=== PATIENT | male | born 1965 | race African-American/Black ===

== ENCOUNTER 2018-08-02 21:45 | Inpatient (IN) | payer MEDICAID ==
[~2018-08-02] VITALS: Ht 172.7 cm; Wt 79.8 kg
[~2018-08-02 21:45] MED LIST: CILOXAN 0.3% O1 DROP RIGHT EYE; NAPHCON-A EYE D15 ML OP; NKM
--- NOTE | 2018-08-02 22:03 | NUR ---
ED Nurse Note: received pt from triage, pt came to ED c/o sob and chest pain started yesterday and progressively worsen, pt states he has been sick for two days and started having sx. pt states chest pain r/t sob. pt AA&ox4, gcs=15, skin warm dry, noted audible wheezing, LS=wheezing in/exp to auscultation, -n/v/d, ambulatory. NSR on cardiac sonographer, noted high blood pressure. ERMD at the bedside, RT contacted, spouse member at the bedside, will cont monitor.
[2018-08-02 22:06] VITALS: BP 170/96
--- NOTE | 2018-08-02 22:07 | Emergency Room Report ---
History of Present Illness General Chief Complaint: Chest Pain Source: Patient Present Illness HPI Patient presents with wheezing and dyspnea. This been going on for 2 days. Denies any fevers. He does say that his significant other was ill before he got ill. Denies sore throat or productive cough. He was ill this way in May. He avoided going to the hospital. This is the worst he's ever been. He does not use an inhaler at home. He's never been on steroids or intubated. In triage he rated pain 10/10 however he states this is more dyspnea and shortness of breath and tightness than pain per se. The patient denies cigarettes but smokes cannabis. No palpitations, nausea, vomiting, diarrhea, dysuria, abdominal pain, depression , visual changes, headache. Allergies: Coded Allergies: NO KNOWN DRUG ALLERGIES (Verified Allergy, Unknown, 08/28/15) Patient History Past Medical History: see triage record Social History: Reports: drug use - THC; Denies: smoking Social History Narrative Reviewed Nursing Documentation: PMH: Agreed; PSxH: Agreed Nursing Documentation-PMH Past Medical History: No Stated History Hx Hypertension: No Hx Diabetes: No Review of Systems All Other Systems: negative except mentioned in HPI Physical Exam Vital Signs Date Time Temp Pulse Resp B/P (MAP) Pulse Ox O2 Delivery O2 Flow Rate FiO2 08/02/18 21:58 98.2 97 27 169/97 94 Room Air Sp02 EP Interpretation: reviewed, abnormal - Interpreted as slightly low by me General Appearance: well appearing, no apparent distress, GCS 15 Head: normocephalic Eyes: bilateral eye normal inspection, bilateral eye PERRL ENT: normal pharynx, moist mucus membranes Neck: supple Respiratory: no respiratory distress - However minimally labored breathing with prolonged expiratory phase, no retraction, wheezing, expiration, inspiration Cardiovascular #1: regular rate, rhythm Cardiovascular #2: 2+ radial (R) Gastrointestinal: normal inspection, normal bowel sounds, non tender, no mass, non-distended Musculoskeletal: back normal, gait/station normal, normal range of motion Neurologic: alert, oriented x3, grossly normal Psychiatric: mood/affect normal - Not wanting to be in the hospital Skin: normal inspection, warm/dry Medical Decision Making Diagnostic Impression: Primary Impression: Status asthmaticus Qualified Codes: J45.42 - Moderate persistent asthma with status asthmaticus Additional Impressions: Leukocytosis Qualified Codes: D72.828 - Other elevated white blood cell count Eosinophilia ER Course Patient presents with bronchospasm. He's fairly tight at the moment. Differential includes asthma, bronchitis, acute myocardial infarction, pneumonia amongst others. Evaluation with EKG, chest x-ray and labs. He'll be treated with Solu Medrol, breathing treatments. As this is his initial presentation with bronchospasm he needs to be observed carefully. Patient placed on traffic monitor specialist. EKG with sinus rhythm with left atrial enlargement. Chest x-ray unremarkable. White count is 17,000 with eosinophils. Swab negative for influenza. Patient with improvement after breathing treatments. However with ambulation he still has significant bronchospasm. Consideration of possible admission as there is also leukocytosis. 2:40 still wheezing though NAD. Repeat treatment. Patient admitted to the hospital medical floor for status asthmaticus and leukocytosis. Laboratory Tests Test 08/02/18 22:11 08/02/18 23:00 White Blood Count 17.8 K/UL (4.8-10.8) H Red Blood Count 5.53 M/UL (4.70-6.10) Hemoglobin 16.3 G/DL (14.2-18.0) Hematocrit 48.8 % (42.0-52.0) Mean Corpuscular Volume 88 FL (80-99) Mean Corpuscular Hemoglobin 29.4 PG (27.0-31.0) Mean Corpuscular Hemoglobin Concent 33.4 G/DL (32.0-36.0) Red Cell Distribution Width 13.7 % (11.6-14.8) Platelet Count 207 K/UL (150-450) Mean Platelet Volume 7.0 FL (6.5-10.1) Neutrophils (%) (Auto) 66.9 % (45.0-75.0) Lymphocytes (%) (Auto) 21.7 % (20.0-45.0) Monocytes (%) (Auto) 7.0 % (1.0-10.0) Eosinophils (%) (Auto) 3.5 % (0.0-3.0) H Basophils (%) (Auto) 1.0 % (0.0-2.0) Sodium Level 142 MMOL/L (136-145) Potassium Level 3.8 MMOL/L (3.5-5.1) Chloride Level 106 MMOL/L (98-107) Carbon Dioxide Level 24 MMOL/L (21-32) Anion Gap 12 mmol/L (5-15) Blood Urea Nitrogen 14 mg/dL (7-18) Creatinine 1.1 MG/DL (0.55-1.30) Estimate Glomerular Filtration Rate > 60 mL/min (>60) Glucose Level 93 MG/DL (74-106) Calcium Level 9.3 MG/DL (8.5-10.1) Magnesium Level 2.0 MG/DL (1.8-2.4) Total Bilirubin 0.3 MG/DL (0.2-1.0) Aspartate Amino Transferase (AST) 30 U/L (15-37) Alanine Aminotransferase (ALT) 49 U/L (12-78) Alkaline Phosphatase 97 U/L (46-116) Total Creatine Kinase 210 U/L (26-308) Troponin I 0.000 ng/mL (0.000-0.056) Pro-B-Type Natriuretic Peptide 38 pg/mL (0-125) Total Protein 8.4 G/DL (6.4-8.2) H Albumin 4.5 G/DL (3.4-5.0) Globulin 3.9 g/dL Albumin/Globulin Ratio 1.2 (1.0-2.7) Urine Color Pale yellow Urine Appearance Clear Urine pH 5 (4.5-8.0) Urine Specific [place] 1.020 (1.005-1.035) Urine Protein Negative (NEGATIVE) Urine Glucose (UA) Negative (NEGATIVE) Urine Ketones 1+ (NEGATIVE) H Urine Blood Negative (NEGATIVE) Urine Nitrite Negative (NEGATIVE) Urine Bilirubin Negative (NEGATIVE) Urine Urobilinogen Normal MG/DL (0.0-1.0) Urine Leukocyte Esterase Negative (NEGATIVE) Microbiology Date/Time Source Procedure Growth Status 08/02/18 22:11 Nasal Nares Influenza Types A,B Antigen (VISHAL) - Final Complete EKG Diagnostic Results Rate: normal Rhythm: NSR ST Segments: no acute changes - Left atrial enlargement Rhythm Strip Diag. Results EP Interpretation: yes Rhythm: NSR, no PVC's, no ectopy Chest X-Ray Diagnostic Results Chest X-Ray Diagnostic Results : Chest X-Ray Ordered: Yes # of Views/Limited/Complete: 1 View Indication: Shortness of Breath EP Interpretation: Yes Interpretation: no consolidation, no effusion, no pneumothorax Impression: Other Electronically Signed by: Electronically signed by Mateo Arzola MD Last Vital Signs Date Time Temp Pulse Resp B/P (MAP) Pulse Ox O2 Delivery O2 Flow Rate FiO2 08/03/18 03:36 97.8 107 18 158/81 100 Room Air 08/03/18 03:28 21 Status: improved Disposition: ADMITTED INPATIENT Condition: Serious Mateo Arzola MD Aug 02, 2018 22:07
[2018-08-02] MEDS ORDERED: Solu-MEDROL 125mg Inj IVP ONE (22:15)
[2018-08-02] MEDS ORDERED: Albuterol ud Inhalation HHN ONE (22:15)
[2018-08-02] MEDS ORDERED: Ipratropium 0.02% Inh Soln 2.5ml UD HHN ONE (22:15)
[2018-08-02 22:33] LABS: EOSINOPHILS % (AUTO) 3.5 % (0.0-3.0); HEMATOCRIT 48.8 % (42.0-52.0); HEMOGLOBIN 16.3 G/DL (14.2-18.0); LYMPHOCYTES % (AUTO) 21.7 % (20.0-45.0); MEAN CORPUSCULAR VOLUME 88 FL (80-99); NEUTROPHILS % (AUTO) 66.9 % (45.0-75.0); PLATELET COUNT 207 K/UL (150-450); RED BLOOD COUNT 5.53 M/UL (4.70-6.10); RED CELL DISTRIBUTION WIDTH 13.7 % (11.6-14.8); WHITE BLOOD COUNT 17.8 K/UL (4.8-10.8)
[2018-08-02 22:41] LABS: ANION GAP 12 mmol/L (5-15); BLOOD UREA NITROGEN 14 mg/dL (7-18); CALCIUM 9.3 MG/DL (8.5-10.1); CARBON DIOXIDE 24 MMOL/L (21-32); CHLORIDE 106 MMOL/L (98-107); CREATININE 1.1 MG/DL (0.55-1.30); POTASSIUM 3.8 MMOL/L (3.5-5.1); SODIUM 142 MMOL/L (136-145)
[2018-08-02 22:52] LABS: ALANINE AMINOTRANSFERASE 49 U/L (12-78); ALBUMIN 4.5 G/DL (3.4-5.0); ALBUMIN/GLOBULIN RATIO 1.2 (1.0-2.7); ALKALINE PHOSPHATASE 97 U/L (46-116); ASPARTATE AMINO TRANSFERASE 30 U/L (15-37); BILIRUBIN,TOTAL 0.3 MG/DL (0.2-1.0); CREATINE KINASE 210 U/L (26-308)
--- NOTE | 2018-08-02 23:04 | Diagnostic Imaging Report ---
EXAM: XR Chest, 1 View CLINICAL HISTORY: COUGH TECHNIQUE: Frontal view of the chest. COMPARISON: No relevant prior studies available. FINDINGS: Cardiac and mediastinal silhouette unremarkable. No consolidation, edema or other acute cardiopulmonary findings. IMPRESSION: No acute cardiopulmonary findings.
[2018-08-02 23:26] LABS: APPEARANCE,URINE CLEAR; BILIRUBIN, URINE NEGATIVE (NEGATIVE); COLOR,URINE PALE YELLOW; GLUCOSE, URINE (UA) NEGATIVE (NEGATIVE); KETONES,URINE 1+ (NEGATIVE); LEUKOCYTE ESTERASE ,URINE NEGATIVE (NEGATIVE); NITRITE,URINE NEGATIVE (NEGATIVE); PH,URINE 5 (4.5-8.0); PROTEIN,URINE NEGATIVE (NEGATIVE); UROBILINOGEN,URINE NORMAL MG/DL (0.0-1.0)
--- NOTE | 2018-08-02 23:30 | NUR ---
ED Nurse Note: pt reports breathing is better with breathing tx, noted less wheezing on auscultation, warm blanket provided for comfort, will cont monitor.
[2018-08-03] VITALS: BP 160/89
[2018-08-03] MEDS ORDERED: Albuterol ud Inhalation HHN ONE ×2 (00:15→02:45)
--- NOTE | 2018-08-03 01:00 | NUR ---
ED Nurse Note: pt sleeping in bed arousable to light shake and name, pt vss, will cont monitor.
[2018-08-03 02:00] VITALS: BP 168/87
[2018-08-03 03:36] VITALS: BP 158/81
--- NOTE | 2018-08-03 03:38 | NUR ---
ED Nurse Note: pt transferred to [place] and endorsed care to KAYY Bey, report was given to KAYY Kendall, all belongings sent with pt, pt no neuro changes, resp even and unlabored, airway intact, -n/v/d, pt reports breathing is better with tx .
--- NOTE | 2018-08-03 03:40 | NUR ---
NURSE NOTES: Pt alert and oriented when he came to the med surge floor, at bedside, able to make needs known, pt asking about going home and when he will be released.
--- NOTE | 2018-08-03 04:55 | NUR ---
NURSE NOTES: Pt awake, alert oriented, continued to request to go home with at bedside, they stated they will follow up with their Primary MD if he has any issues with breathing, I educated the pt on the benefits of being admitted and informed them that I had to contact the doctor. I contacted Dr. Sousa and informed him, informed me to educate the patient and pt alert with to educate also, which I did. Pt saturation 94% and pt breathing well with no complications after receiving breathing treatment in ER. Pt IV removed and he left with his .
--- NOTE | 2018-08-05 08:38 | Discharge Summary ---
Discharge Summary Discharge Summary _ DATE OF ADMISSION: 08/03/2018 DATE OF DISCHARGE: 08/03/2018 Patient signed AGAINST MEDICAL ADVICE. REASON FOR ADMISSION: 53 years old male with unknown past medical history, presented to emergency department with wheezing, dyspnea and chest tightness for two days. Upon evaluation patient was tachypneic with respiratory rate 27, pulse oximetry was 94% on room air. Blood pressure was elevated 169/97. Patient denied any fever.. Patient reported that his significant other was ill as well prior to him becoming ill. Patient denied sore throat or productive cough. Patient reported similar episode in May , but this was worse. Patient denied using inhalers. Patient never was on steroids or intubated in the past . Patient was never diagnosed with COPD/asthma. Chest x-ray revealed no evidence of acute cardiopulmonary pathology. Laboratory workup revealed leukocytosis WBC 17.8, stable hemoglobin and hematocrit. Elevated eosinophil 3.5. Chemistry was unremarkable. Troponin was negative. EKG revealed normal sinus rhythm, no acute ischemic changes. Urinalysis revealed no evidence of urinary tract infection. Influenza screen test was negative. Patient was started on IV Solu-Medrol. Patient received breathing treatment via hand-held nebulizer with a bronchodilator. Patient still had significant bronchospasm and subsequently was admitted for further management. HOSPITAL COURSE: Patient admitted to medical surgical floor. Supplemental oxygen provided to keep pulse oximetry above 92%. Pulmonary toilet with bronchodilators provided. Patient already felt better. Blood pressure was coming down. Pulse oximetry was stable on room air. was at the bedside. Patient decided to sign AGAINST MEDICAL ADVICE. The risks and consequences of signing AGAINST MEDICAL ADVICE were discussed with patient in detail. Patient verbalized understanding, nevertheless signed AMA form and left. Patient was encouraged to follow-up with primary care provider as outpatient . FINAL DIAGNOSES: Acute bronchospasm Leukocytosis Probably upper respiratory infection I have been assigned to dictate discharge summary for this account. I was not involved in the patient's management. Mago Rodrigez NP Aug 05, 2018 08:38
== END 2018-08-03 05:00 | disposition left against medical advice (07) | DRG 144 ==
LOC: EMR 22:11 → 4E 08-03 01:30 → EDBEDREQ 08-03 02:47
DX: J98.01 Acute bronchospasm (principal); D72.829 Elevated white blood cell count, unspecified; J06.9 Acute upper respiratory infection, unspecified; Z53.21 Procedure and treatment not carried out due to patient leaving prior to being seen by health care provider
CPT/HCPCS: 36415; 71045; 80053; 81003; 82550; 83735; 83880; 84484; 85025; 86710; 93005; 94640; 94664; 96361; 96374; 99285

== ENCOUNTER 2019-07-16 13:48 | Inpatient (IN) | payer MEDICAID ==
[~2019-07-16] VITALS: Ht 175.3 cm; Wt 80.7 kg
[2019-07-16 14:00] VITALS: BP 149/94
--- NOTE | 2019-07-16 14:00 | NUR ---
ED Nurse Note: Patient arrived to ED from home c/o left sided numbeness since yesterday AM. Patient noticed when he woke up yesterday and thought that it was from sleeping wrong. No c/o pain, patient AxO x 4.
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
--- NOTE | 2019-07-16 14:57 | NUR ---
ED Nurse Note: Handoff report given to Tara SULTANA
[2019-07-16 14:59] LABS: BASOPHILS % (AUTO) 0.9 % (0.0-2.0); EOSINOPHILS % (AUTO) 3.2 % (0.0-3.0); HEMATOCRIT 46.3 % (42.0-52.0); HEMOGLOBIN 15.9 G/DL (14.2-18.0); MEAN CORPUSCULAR VOLUME 87 FL (80-99); MONOCYTES % (AUTO) 7.5 % (1.0-10.0); NEUTROPHILS % (AUTO) 52.4 % (45.0-75.0); PLATELET COUNT 214 K/UL (150-450); RED BLOOD COUNT 5.33 M/UL (4.70-6.10); RED CELL DISTRIBUTION WIDTH 13.4 % (11.6-14.8); WHITE BLOOD COUNT 11.9 K/UL (4.8-10.8)
[2019-07-16 15:15] LABS: ANION GAP 11 mmol/L (5-15); BLOOD UREA NITROGEN 20 mg/dL (7-18); CARBON DIOXIDE 26 MMOL/L (21-32); CHLORIDE 104 MMOL/L (98-107); CREATININE 1.5 MG/DL (0.55-1.30); POTASSIUM 3.9 MMOL/L (3.5-5.1); SODIUM 141 MMOL/L (136-145)
[2019-07-16 15:21] LABS: ALANINE AMINOTRANSFERASE 41 U/L (12-78); ALBUMIN 4.1 G/DL (3.4-5.0); ALBUMIN/GLOBULIN RATIO 1.1 (1.0-2.7); ALKALINE PHOSPHATASE 84 U/L (46-116); ASPARTATE AMINO TRANSFERASE 23 U/L (15-37); BILIRUBIN,TOTAL 0.3 MG/DL (0.2-1.0); CREATINE KINASE 295 U/L (26-308)
--- NOTE | 2019-07-16 15:28 | Diagnostic Imaging Report ---
Indication: Left-sided weakness x2 days Technique: The head was imaged in a 1.5 Jayashree magnet. Sequences obtained include sagittal and axial T1 FLAIR, axial T2 fast spin echo with fat saturation, axial T2* GRE, axial T2 FLAIR, diffusion and ADC map. Comparison: None There is a small faint focus of diffusion restriction measuring about 1 cm in the right thalamus. This is consistent with acute infarct. There is no edema or mass effect. There is no evidence of hemorrhage. 5 mm cystic focus noted in the posterior part of the left putamen and a 6 mm cystic focus in the right caudate nucleus. There is a probable 2 mm right pontine old lacunar infarct as well. Both of these are consistent with old lacunar infarcts. There is mild periventricular low attenuation consistent with chronic small vessel disease. The cerebral sulci, basal cisterns are normal. The corpus callosum and sella appear normal. Bone marrow signal is normal. IMPRESSION: Acute 1 cm infarct involving right thalamus. This is seen in the setting of multiple old lacunar infarcts and periventricular T2 hyperintense signal indicative of chronic small vessel disease.
--- NOTE | 2019-07-16 15:53 | Diagnostic Imaging Report ---
Indication: Chest pain Comparison: 08/02/2018 A single view chest radiograph was obtained. Findings: Cardiomediastinal appearance is within normal limits for age. The lungs are clear. Pulmonary vascularity is appropriate. The diaphragmatic contour is smooth and costophrenic angles are sharp. No pleural effusions are identified. The bones are unremarkable. Impression: No acute findings
[2019-07-16 16:21] VITALS: BP 158/91
[2019-07-16 19:22] VITALS: BP 148/89
[2019-07-16 22:50] VITALS: BP 143/82
--- NOTE | 2019-07-16 23:10 | NUR ---
ED Nurse Note: Report received from KAYY Pacheco and endorsed plan of care. Pt is awake and alert, resting in bed at this time. No acute distress noted. Will continue to monitor.
[2019-07-17] VITALS (7 sets, daily range): BP systolic 131–158; BP diastolic 81–99
--- NOTE | 2019-07-17 01:20 | NUR ---
ED Nurse Note: Report given to KAYY Andino.
--- NOTE | 2019-07-17 01:20 | NUR ---
ED Nurse Note: Pt stable to transfer to unit per ERMD. Pt is in no acute distress, aaox4. Pt taken to unit via gurney by RN and génesis. Pt connected to apiculturist for transfer to floor. Pt belongings sent with pt.
--- NOTE | 2019-07-17 01:30 | NUR ---
NURSE NOTES: Received report from KAYY Hernandez. Patient transferred from ER in stable condition, AOx4, on RA, no distress, workers compensation coordinator placed, belonging list checked and signed, IV on right A/C patent , asymptomatic, intact, Dr Woodson called for admission orders, awaiting call back. Bed low&locked , side rails upx2, call light within reach,will continue to monitor and reassess. at bedside
--- NOTE | 2019-07-17 07:20 | NUR ---
NURSE NOTES: Received report from KAYY Andino. The patient is resting on the bed without acute distress or shortness of breath. The patient's bed in the lowest position, call light in reach, and fall and aspiration precaution reinforced. IV site intact and patent. Per patient, he does not have tingling and numbness on left arm anymore. The patient's verbal response and extremities functions and strength intact. Paged Dr. Tolbert for order and neuro consult. No new order yet. Will continue plan of care.
--- NOTE | 2019-07-17 07:28 | NUR ---
HAND-OFF: Report given to Federica SULTANA, patient in stable condition, plan of care endorsed.
[2019-07-17] MEDS: Enoxaparin 40mg Inj SUBQ SCH (08:58)
[2019-07-17] MEDS ORDERED: Aspirin Baby 81mg ORAL SCH (09:00)
[2019-07-17 09:03] LABS: EOSINOPHILS % (AUTO) 3.4 % (0.0-3.0); HEMATOCRIT 44.2 % (42.0-52.0); HEMOGLOBIN 15.4 G/DL (14.2-18.0); MEAN CORPUSCULAR VOLUME 87 FL (80-99); MONOCYTES % (AUTO) 7.8 % (1.0-10.0); NEUTROPHILS % (AUTO) 51.8 % (45.0-75.0); PLATELET COUNT 193 K/UL (150-450); RED BLOOD COUNT 5.11 M/UL (4.70-6.10); RED CELL DISTRIBUTION WIDTH 13.4 % (11.6-14.8); WHITE BLOOD COUNT 11.4 K/UL (4.8-10.8)
[2019-07-17 09:38] LABS: ALANINE AMINOTRANSFERASE 138 U/L (12-78); ALBUMIN 3.5 G/DL (3.4-5.0); ALBUMIN/GLOBULIN RATIO 0.9 (1.0-2.7); ALKALINE PHOSPHATASE 75 U/L (46-116); ANION GAP 8 mmol/L (5-15); ASPARTATE AMINO TRANSFERASE 77 U/L (15-37); BILIRUBIN,TOTAL 0.5 MG/DL (0.2-1.0); BLOOD UREA NITROGEN 14 mg/dL (7-18); CALCIUM 8.4 MG/DL (8.5-10.1); CARBON DIOXIDE 25 MMOL/L (21-32); CHLORIDE 107 MMOL/L (98-107); CREATININE 1.1 MG/DL (0.55-1.30); POTASSIUM 3.9 MMOL/L (3.5-5.1); SODIUM 140 MMOL/L (136-145)
--- NOTE | 2019-07-17 10:00 | NUR ---
NURSE NOTES: The patient is stable without acute distress or shortness of breath. Will continue plan of care.
--- NOTE | 2019-07-17 10:45 | History and Physical ---
History of Present Illness General Date patient seen: Jul 17, 2019 Reason for Hospitalization: General Complaint Present Illness HPI 54-year-old right-handed man with a history of hypertension, not on meds, presented with a chief complaint of numbness to the left side of his body . The patient was doing barbecue 2 days prior to presentation and suddenly had some numbness in both arms. The patient denies any headaches, seizures, dizziness, muscle weakness, paresthesias, or dysesthesias. _Denies chest pain, palpitations, or shortness of breath. In the ER was found to have an elevated white cell count of 11.9, chemistry revealed a BUN of 20, creatinine 1.5. Troponin is 0.00, Liver function tests are normal. electrolytes are normal. Blood sugar was 114 on admission. EKG sinus bradycardia. normal chest x-ray. Brain MRI: There is a probable 3 mm right pontine old lacunar infarct. 1 cm right thalamic inaction. Past medical and surgical history; Untreated HTN, conjunctivitis Social history: smokes marijuana, denies cigarette smoking and illicit drug use Family history : HTN Allergies: Coded Allergies: NO KNOWN DRUG ALLERGIES (Verified Allergy, Unknown, 08/28/15) Medication History No Active Prescriptions or Reported Meds Patient History Healthcare decision maker Resuscitation status Advanced Directive on File Review of Systems Constitutional: Denies: no symptoms, see HPI, chills, sweats, fever, malaise, weakness, other Eye: Denies: no symptoms, see HPI, eye pain, blurred vision, tearing, double vision, nose pain, nose congestion, acuity changes, discharge, other ENT: Denies: no symptoms, see HPI, ear pain, ear discharge, nose pain, nose congestion, throat pain, throat swelling, mouth pain, hearing loss, nasal discharge, other Respiratory: Denies: no symptoms, see HPI, cough, orthopnea, shortness of breath, stridor, wheezing, CASTILLO, sputum, other Cardiovascular: Denies: no symptoms, see HPI, chest pain, edema, palpitations, syncope, PND, other Gastrointestinal: Denies: no symptoms, see HPI, abdominal pain, constipation, diarrhea, nausea, vomiting, melena, hematemesis, other Genitourinary: Denies: no symptoms, see HPI, discharge, dysuria, frequency, hematuria, pain, retention, incontinence, urgency, vag bleed/dc, other Musculoskeletal: Denies: no symptoms, see HPI, back pain, gout, joint pain, joint swelling, muscle pain, muscle stiffness, other Skin: Denies: no symptoms, see HPI, rash, change in color, change in hair/nails , dryness, lesions, other Psychiatric: Denies: no symptoms, see HPI, prior hx, anxiety, depressed feelings, emotional problems, SI, HI, hallucinations, other Neurological: Reports: numbness Endocrine: Denies: no symptoms, see HPI, excessive sweating, flushing, intolerance to temperature, increased thirst, increased urine, unexplained weight loss, other Hematologic/Lymphatic: Denies: no symptoms, see HPI, anemia, blood clots, easy bleeding, easy bruising, swollen glands, diathesis, other Physical Exam General Appearance: WD/WN, no apparent distress, alert Lines, tubes and drains: peripheral HEENT: normocephalic, atraumatic, anicteric, PERRL, EOMI Neck: non-tender, supple Respiratory/Chest: chest wall non-tender, lungs clear, normal breath sounds, no respiratory distress, no accessory muscle use Cardiovascular/Chest: normal peripheral pulses, normal rate, regular rhythm, no gallop/murmur, no JVD Abdomen: normal bowel sounds, non tender, soft, no organomegaly Extremities: normal range of motion, non-tender, normal inspection, no calf tenderness Skin Exam: normal pigmentation, warm/dry, other - + multiple tattoos Neurologic: meat cooler II-XII grossly normal, no motor/sensory deficits, oriented x 3 , responsive, no Babinski, no pronator Musculoskeletal: normal muscle bulk Last 24 Hour Vital Signs Date Time Temp Pulse Resp B/P (MAP) Pulse Ox O2 Delivery O2 Flow Rate FiO2 07/17/19 08:00 97.5 62 18 131/83 (99) 96 07/17/19 08:00 66 07/17/19 04:00 98.1 64 18 131/81 (98) 99 07/17/19 02:57 97.3 60 18 158/99 (118) 98 07/17/19 01:41 Room Air 07/17/19 01:35 73 07/17/19 01:20 98.0 61 16 136/83 99 Room Air 07/17/19 01:00 97.9 61 15 136/83 99 Room Air 07/16/19 22:50 97.9 68 14 143/82 100 Room Air 07/16/19 19:22 97.9 56 14 148/89 100 Room Air 07/16/19 16:21 97.9 55 14 158/91 100 Room Air 07/16/19 14:00 97.9 74 19 149/94 98 Room Air 07/16/19 14:00 71 19 Room Air 07/16/19 13:50 97.9 71 19 149/94 (112) 98 Room Air Intake and Output 07/16/19 07/17/19 19:00 07:00 Intake Total 0 ml Balance 0 ml Intake Oral 0 ml # Voids 1 Laboratory Tests Test 07/16/19 14:36 07/17/19 08:00 White Blood Count 11.9 K/UL (4.8-10.8) H 11.4 K/UL (4.8-10.8) H Red Blood Count 5.33 M/UL (4.70-6.10) 5.11 M/UL (4.70-6.10) Hemoglobin 15.9 G/DL (14.2-18.0) 15.4 G/DL (14.2-18.0) Hematocrit 46.3 % (42.0-52.0) 44.2 % (42.0-52.0) Mean Corpuscular Volume 87 FL (80-99) 87 FL (80-99) Mean Corpuscular Hemoglobin 29.8 PG (27.0-31.0) 30.1 PG (27.0-31.0) Mean Corpuscular Hemoglobin Concent 34.4 G/DL (32.0-36.0) 34.7 G/DL (32.0-36.0) Red Cell Distribution Width 13.4 % (11.6-14.8) 13.4 % (11.6-14.8) Platelet Count 214 K/UL (150-450) 193 K/UL (150-450) Mean Platelet Volume 6.5 FL (6.5-10.1) 6.3 FL (6.5-10.1) L Neutrophils (%) (Auto) 52.4 % (45.0-75.0) 51.8 % (45.0-75.0) Lymphocytes (%) (Auto) 36.0 % (20.0-45.0) 36.0 % (20.0-45.0) Monocytes (%) (Auto) 7.5 % (1.0-10.0) 7.8 % (1.0-10.0) Eosinophils (%) (Auto) 3.2 % (0.0-3.0) H 3.4 % (0.0-3.0) H Basophils (%) (Auto) 0.9 % (0.0-2.0) 1.0 % (0.0-2.0) Sodium Level 141 MMOL/L (136-145) 140 MMOL/L (136-145) Potassium Level 3.9 MMOL/L (3.5-5.1) 3.9 MMOL/L (3.5-5.1) Chloride Level 104 MMOL/L (98-107) 107 MMOL/L (98-107) Carbon Dioxide Level 26 MMOL/L (21-32) 25 MMOL/L (21-32) Anion Gap 11 mmol/L (5-15) 8 mmol/L (5-15) Blood Urea Nitrogen 20 mg/dL (7-18) H 14 mg/dL (7-18) Creatinine 1.5 MG/DL (0.55-1.30) H 1.1 MG/DL (0.55-1.30) Estimat Glomerular Filtration Rate 59.5 mL/min (>60) > 60 mL/min (>60) Glucose Level 114 MG/DL (74-106) H 95 MG/DL (74-106) Calcium Level 9.0 MG/DL (8.5-10.1) 8.4 MG/DL (8.5-10.1) L Total Bilirubin 0.3 MG/DL (0.2-1.0) 0.5 MG/DL (0.2-1.0) Aspartate Amino Transf (AST/SGOT) 23 U/L (15-37) 77 U/L (15-37) H Alanine Aminotransferase (ALT/SGPT) 41 U/L (12-78) 138 U/L (12-78) H Alkaline Phosphatase 84 U/L (46-116) 75 U/L (46-116) Total Creatine Kinase 295 U/L (26-308) Troponin I 0.000 ng/mL (0.000-0.056) Total Protein 7.9 G/DL (6.4-8.2) 7.2 G/DL (6.4-8.2) Albumin 4.1 G/DL (3.4-5.0) 3.5 G/DL (3.4-5.0) Globulin 3.8 g/dL 3.7 g/dL Albumin/Globulin Ratio 1.1 (1.0-2.7) 0.9 (1.0-2.7) L Height (Feet): 5 Height (Inches): 9.00 Weight (Pounds): 178 Medications Current Medications Medications (Trade) Dose Ordered Sig/Olive Route PRN Reason Start Time Stop Time Status Last Admin Dose Admin Aspirin (ASA) 81 mg DAILY ORAL 07/17/19 09:00 08/16/19 08:59 07/17/19 08:57 Enoxaparin Sodium (Lovenox) 40 mg DAILY SUBQ 07/17/19 09:00 08/16/19 08:59 07/17/19 08:58 Objective Narrative Brain MRI: Acute 1 cm infarct involving right thalamus. This is seen in the setting of multiple old lacunar infarcts and periventricular T2 hyperintense signal indicative of chronic small vessel disease. EKG personally interpreted by me : sinus bradycardia, no acute st-t changes Assessment/Plan Problem List: (1) PITO (acute kidney injury) ICD Codes: N17.9 - Acute kidney failure, unspecified SNOMED: 8428671, 42726310 (2) CVA (cerebral vascular accident) ICD Codes: I63.9 - Cerebral infarction, unspecified SNOMED: 140371230 (3) HTN (hypertension) ICD Codes: I10 - Essential (primary) hypertension SNOMED: 21571287 Status: stable Assessment/Plan: 54 year old male with untreated hypertension presents with acute right thalamic infarction. #Acute CVA #HTN - uncontrolled Admit to telemetry Neurology consult CTA head and neck ASA, atorvastatin 80 mg check lipid panel, HbA1c permissive HTN for 48 hours 2D echo Carotid US #PITO Monitor renal function avoid nephrotoxic medications If worse tomorrow, nephrology consult #Leukocytosis -Reactive I spent 70 minutes on this encounter. Greater than 50% spent on counselling and care coordination. plan of care d/w patient time of note may not reflect time of encounter Carmelo Webb M.D. Jul 17, 2019 10:45
--- NOTE | 2019-07-17 10:55 | NUR ---
NURSE NOTES: Dr. Webb at the bedside assessed the patient. Dr. Webb consulted with Dr. Rousseau. No new order other than physician consult. Paged Dr. Rousseau for new consult. No response yet. Will continue plan of care.
--- NOTE | 2019-07-17 12:00 | NUR ---
NURSE NOTES: The patient is stable without acute distress or shortness of breath. No change in verbal response, motor response, or eye movement from baseline. Will continue plan of care.
--- NOTE | 2019-07-17 14:53 | Diagnostic Imaging Report ---
Indication: Left-sided weakness, numbness, history of CVA Technique: Grayscale and duplex images of the extracranial carotid and vertebral arteries Comparison: none Findings: Bilaterally, grayscale and duplex images demonstrate atherosclerotic plaquing in the proximal internal carotid arteries. Doppler flow velocities and waveforms are within normal limits except for mild flow velocity elevation in the common carotid arteries; no associated stenosis seen on imaging.. Patent bilateral vertebral arteries, antegrade flow Impression: Less than 50% diameter stenosis bilaterally Stenosis measurements are based on consensus conference criteria developed by the [employer] and on NASCET criteria
--- NOTE | 2019-07-17 16:29 | NUR ---
CASE MANAGEMENT:REVIEW 54 YR OLD MALE WALKED IN TO ER CC: LT SIDED NUMBNESS SI: CVA. CERVICAL RADICULOPATHY 97.8 71 19 149/94 98% ON RA BUN+20 CR+1.5 IS: ASA PO 1L NS BOLUS MRI BRAIN CHEST XRAY : TELEMETRY STATUS
[2019-07-17] MEDS ORDERED: Omnipaque 350 100ml vial INJ PRN ×2 (16:30)
--- NOTE | 2019-07-17 16:32 | NUR ---
NURSE NOTES: Dr. Rousseau ordered CTA of brain and neck with contrast. Carried out the order. Will continue plan of care
--- NOTE | 2019-07-17 17:30 | NUR ---
NURSE NOTES: The patient took CTA of brain and neck with contrast in a safe manner. Dr. Rousseau came in and assessed the patient. Dr. Rousseau adjusted and added medication. The patient is stable without acute distress or shortness of breath. Will continue plan of care.
--- NOTE | 2019-07-17 17:57 | Diagnostic Imaging Report ---
Indication: Left facial numbness Technique: IV administration nonionic contrast. Arterial phase spiral acquisitions obtained through the neck Multiplanar and 3-D reconstructions were generated. Total dose length product 4477 mGycm. CTDIvol(s) 5, 62, 252, 37, 62 mGy. Radiation dose was minimized using automated exposure control Comparison: Reference made to carotid duplex scan dated 07/17/2019 Findings: Unremarkable aortic arch. Normal classic branching anatomy of the great neck vessels is noted. Patent nonstenotic proximal right brachiocephalic artery. The common carotid artery origin is obscured by streak artifact from the adjacent contrast filled subclavian vein. The common carotid artery is otherwise patent and nonstenotic. There is calcified atherosclerotic plaquing at the carotid bifurcation, which does not result in any significant luminal narrowing. The proximal right subclavian artery is obscured by streak artifact at the origin. The vertebral artery origin is likewise obscured. The right vertebral artery is otherwise patent, codominant, nonstenotic. The left common carotid artery is patent and nonstenotic. There is calcified atherosclerotic plaque at the carotid bifurcation. This does not result in any significant luminal narrowing. The proximal internal carotid artery is patent without significant stenosis. The left subclavian origin is patent and nonstenotic. The left vertebral artery is patent, nonstenotic, codominant. There is ethmoid and left maxillary sinus disease. There is prominence of the adenoids. The upper aerodigestive tract is otherwise unremarkable. The thyroid is unremarkable. No cervical mass or adenopathy demonstrated. The salivary glands are unremarkable. The upper mediastinum is unremarkable. The included upper lungs are clear. Impression: No evidence of significant intracranial cerebrovascular insufficiency This agrees with the preliminary interpretation provided overnight by [facility]. The CT scanner at [facility] is accredited by the [employer] and the scans are performed using protocols designed to limit radiation exposure to as low as reasonably achievable to attain images of sufficient resolution adequate for diagnostic evaluation.
--- NOTE | 2019-07-17 18:43 | Diagnostic Imaging Report ---
. Indication: Reason For Exam: AMS Technique: Precontrast spiral acquisitions obtained through the brain. IV administration nonionic contrast. Arterial and delayed phase spiral acquisitions obtained through the brain Multiplanar and 3-D reconstructions were generated. Total dose length product cyst 4477 mGycm. CTDIvol(s) 5, 62, 252, 37, 62 mGy. Radiation dose was minimized using automated exposure control Comparison: Brain MRI dated 07/16/2019 Findings: Precontrast images demonstrate no evidence of acute intracranial hemorrhage or edema. No mass effect nor midline shift. Old lacunar infarct infarcts are seen in the left basal ganglia, right caudate head, and right side of the benji.. The acute lacunar infarct described on recent MRI is not visible normal hung-white differentiation. No mass effect nor midline shift. Normal size ventricles and extra-axial CSF spaces. The mastoids are clear. There is ethmoid sinus mucosal disease bilaterally. The calvarium is intact. The bilateral distal vertebral arteries are codominant, nonstenotic. Patent nonstenotic bilateral PICA cyst. Patent nonstenotic basilar artery and branches. There is mild narrowing of the distal P1 segment of the posterior cerebral artery. There is a patent right posterior to indicating artery. The left P1 segment and P2 segments of the posterior cerebral arteries and proximal branches are patent without significant stenosis. The distal internal carotid arteries are patent, nonstenotic. Patent nonstenotic bilateral M1 segments and proximal middle cerebral artery branches. Patent nonstenotic bilateral A1 segments and proximal anterior cerebral artery branches. Patent anterior communicating artery is demonstrated. The veins and venous sinuses appear unremarkable. There is no evidence of aneurysm or vascular malformation. Delayed phase postcontrast images demonstrate no unusual contrast enhancement. Impression: Old lacunar infarcts, as described above and previously No evidence of significant proximal intracranial cerebrovascular insufficiency Sinus disease This agrees with the preliminary interpretation provided overnight by [facility]. The CT scanner at [facility] is accredited by the [employer] and the scans are performed using protocols designed to limit radiation exposure to as low as reasonably achievable to attain images of sufficient resolution adequate for diagnostic evaluation.
--- NOTE | 2019-07-17 19:30 | NUR ---
HAND-OFF: Report given to KAYY Verduzco. The patient is resting on the bed without acute distress or shortness of breath. The patient's bed in the lowest position, call light in reach, and fall and aspiration precaution reinforced. IV site intact and patent. Endorsed plan of care.
--- NOTE | 2019-07-17 20:00 | NUR ---
NURSE NOTES: Received pt from KAYY Stallworth. Pt awake, alert, and talkative. Bed in lowest position. Call light within reach. Family at bedside. Will continue to monitor.
[2019-07-17] MEDS: Atorvastatin 80mg tab ORAL SCH (21:48)
[2019-07-18] VITALS: BP 131/92
[2019-07-18 04:00] VITALS: BP 133/90
--- NOTE | 2019-07-18 07:30 | Consultation ---
DATE OF CONSULTATION: 07/17/2019 NOTE: VERY POOR AUDIO NEUROLOGIC CONSULTATION CONSULTING PHYSICIAN: Ezra Rousseau M.D. CHIEF COMPLAINT: This is a 54-year-old right-handed man with a history of hypertension, subsequently treated, was admitted with a chief complaint of numbness to the left side of his body and subsequently was found to have a new right thalamic lacunar stroke. I was asked to see the patient to evaluate the stroke. The patient was at a barbeque and had some numbness in both arms . The patient denies any headaches, seizures, or blackouts. dizzy spells, sleep disorder, muscle weakness, paresthesias, or dysesthesias in other areas. He does not have diabetes. Denies history of hyperlipidemia. Also, denies illegal drug use. Denies chest pain, palpitations, or shortness of breath with this problem. The patient when he came to this hospital was found to have an elevated white cell count of 11.9, today it is 11.4. His hemoglobin is in the high-normal range. Platelet counts were normal. His chemistry revealed a BUN of 20, creatinine 1.5, which has normalized today. Troponin is 0. Liver function tests are normal. Rest of the electrolytes are normal. Blood sugar was 114 on admission. The patient had an EKG sinus bradycardia, otherwise it is a normal study. The patient's imaging studies revealed the patient had a normal chest x-ray lacunar caudate nucleus. There is a probable 3 mm right pontine old lacunar infarct as well. He also had a 1 cm right thalamic cva which was thought to be a new stroke. I was asked to see the patient in neurologic consultation Today I ordered a CTangiogram of brain and neck, which is negative. PAST MEDICAL HISTORY/PAST MEDICAL ILLNESSES: 1. History of hbp. 2. Conjunctivitis. MEDICATIONS: eye drops. He denies any other medications. ALLERGIES: He has multiple allergies. SOCIAL HISTORY: noncont. FAMILY HISTORY: noncont. REVIEW OF SYSTEMS: 5.5. He is 178 pounds Rest of the review of systems is noncontributory. PHYSICAL EXAMINATION: GENERAL: He is a well-developed, well-nourished man, in no acute distress. VITAL SIGNS: Blood pressure is 138/82, temperature is 98.1 degrees, respiratory rate is 18, pulse rate is 58 and regular. HEENT: Reveals some cracked teeth, otherwise head exam is normal. NECK: There is no tenderness or muscle spasm. Limitation in motion. Carotids are +2 without any bruits. LUNGS: Clear to auscultation. CARDIOVASCULAR: PMI was not felt. JVP was normal. The patient had a normal S1. S2 is physiologically split. There is no S3, S4, murmurs, or rubs. ABDOMEN: Scaphoid. Bowel sounds intact. There is no tenderness, masses, or organomegaly. BACK: There is no tenderness to percussion or muscle spasms. EXTREMITIES: Normal. NEUROLOGIC EXAMINATION: MENTAL STATUS: He is alert and awake. Judgment not tested. Affect appropriate. Memory, past memory is intact to date of . Immediate recall 3/3 objects. Recent recall is 2/3. Intellect, not tested. Orientation, date he knew it is 07/17/2019. Place, he knew he is at [facility]. Person, he is oriented to person. Language function, spoken speech was normal without paraphasias. Comprehension was intact. CRANIAL NERVE EXAMINATION: CRANIAL NERVE II: Visual leger are intact to confrontation. Fundi not visualized. CRANIAL NERVES III, IV, AND : The extraocular motility is full. Left pupil is approximately 4.5 mm, right pupil is 3 mm. Both reactive to light. CRANIAL NERVE V: Facial and corneal sensation intact to fine touch. CRANIAL NERVE VII: Facial strength is 5/5 bilaterally. CRANIAL NERVE VIII: Auditory acuity is intact bilaterally. CRANIAL NERVES IX AND X: Gag is intact bilaterally. CRANIAL NERVE XI: Sternocleidomastoid strength is 5/5. CRANIAL NERVE XII: Tongue protrudes in the midline without fasciculations or atrophy. MUSCLE EXAMINATION: Muscle bulk and tone are normal. Strength is 5/5 proximally and distally without pronator drift. Reflexes are +2 in the upper and lower extremities with downgoing toes on testing for Babinski response. COORDINATION: [id number]-[id number], [id number] testing and rapid alternating movements are normal. GAIT AND STATION: He had a normal based gait. Heel-toe tandem walk normal. Romberg is negative. SENSORY EXAMINATION: Sensation is intact to pinprick, proprioception, vibration, fine touch. IMPRESSION: This patient has a new stroke probably related to chronic hypertension. The patient may also have hyperlipidemia sexually transmitted diseases such as syphilis unlikely. The patient was somewhat dehydrated. His white count was a little elevated, which could be due to infection unclear. The patient should be on Plavix and aspirin. His LDL cholesterol should reduce to about 70. The aspirin dose should be 325 rather than 81 mg. 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 CT angiogram of the neck is negative. I doubt atrial fibrillation. PLAN: 1. Aspirin 325 mg a day, Plavix 75 mg a day 2. ctantiogram results. Thank you for this interesting case. Ezra Rousseau MD DR: ADDISON JOB#: [id number] CC: SURY
--- NOTE | 2019-07-18 07:32 | NUR ---
HAND-OFF: Report given to KAYY Quintana. Pt stable.
[2019-07-18 08:00] VITALS: BP 143/89
[2019-07-18 08:00] LABS: CHOLESTEROL 269 MG/DL (< 200); CREATINE KINASE 227 U/L (26-308); HDL CHOLESTEROL 52 MG/DL (40-60); TRIGLYCERIDES 137 MG/DL (30-150)
[2019-07-18] MEDS: Enoxaparin 40mg Inj SUBQ SCH (09:50)
--- NOTE | 2019-07-18 10:55 | NUR ---
*-* INSURANCE *-* ALL CLINICALS AND REVIEWS HAVE BEEN FAXED TO: JACKIE: MIKA FAHAD# [id number] P: [phone] F: [phone] Addendum: 07/18/19 at 1057 by SHONNA YEN [facility]
--- NOTE | 2019-07-18 11:25 | General Progress Note ---
Assessment/Plan Problem List: (1) PITO (acute kidney injury) ICD Codes: N17.9 - Acute kidney failure, unspecified SNOMED: 2754155, 81058134 (2) CVA (cerebral vascular accident) ICD Codes: I63.9 - Cerebral infarction, unspecified SNOMED: 686043261 (3) HTN (hypertension) ICD Codes: I10 - Essential (primary) hypertension SNOMED: 16487302 Status: stable Assessment/Plan: 54 year old male with untreated hypertension presents with acute right thalamic infarction. #Acute CVA #HTN - uncontrolled #HLD telemetry Neurology consult appreciated CTA head and neck negative ASA, atorvastatin 80 mg. ASA changed to 325 per neuro, added plavix check lipid panel, HbA1c --> LDL 170, HbA1c 5.6 permissive HTN for 48 hours, can then add amlodipine 5mg daily 2D echo, pending possible discharge on Wednesday 07/19 #PITO- resolved Monitor renal function avoid nephrotoxic medications #Leukocytosis -Reactive I spent 40 minutes on this encounter. Greater than 50% spent on counselling and care coordination. plan of care d/w patient time of note may not reflect time of encounter Subjective Date patient seen: Jul 18, 2019 ROS Limited/Unobtainable: No Constitutional: Denies: no symptoms, chills, diaphoresis, fever, malaise, weakness, other HEENT: Denies: no symptoms, eye pain, blurred vision, tearing, double vision, ear pain, ear discharge, nose pain, nose congestion, throat pain, throat swelling, mouth pain, mouth swelling, other Cardiovascular: Denies: no symptoms, chest pain, edema, irregular heart rate, lightheadedness, palpitations, syncope, other Respiratory: Denies: no symptoms, cough, orthopnea, shortness of breath, SOB with excertion, SOB at rest, sputum, stridor, wheezing, other Gastrointestinal/Abdominal: Denies: no symptoms, abdomen distended, abdominal pain, black stools, tarry stools, blood in stool, constipated, diarrhea, difficulty swallowing, nausea, poor appetite, poor fluid intake, rectal bleeding , vomiting, other Genitourinary: Denies: no symptoms, burning, discharge, frequency, flank pain, hematuria, incontinence, pain, urgency, other Neurologic/Psychiatric: Denies: no symptoms, anxiety, depressed, emotional problems, headache, numbness, paresthesia, pre-existing deficit, seizure, tingling, tremors, weakness, other Endocrine: Denies: no symptoms, excessive sweating, flushing, intolerance to cold, intolerance to heat, increased hunger, increased thirst, increased urine, unexplained weight gain, unexplained weight loss, other Hematologic/Lymphatic: Denies: no symptoms, anemia, easy bleeding, easy bruising, other Allergies: Coded Allergies: NO KNOWN DRUG ALLERGIES (Verified Allergy, Unknown, 08/28/15) Subjective acute right thalamic infarct. BP relatively okay in the 140's. Ct head and neck negative. He is asymptomatic at this point Objective Last 24 Hour Vital Signs Date Time Temp Pulse Resp B/P (MAP) Pulse Ox O2 Delivery O2 Flow Rate FiO2 07/18/19 10:59 Room Air 07/18/19 08:00 97.7 64 16 143/89 (107) 97 07/18/19 04:00 97.4 57 18 133/90 (104) 98 07/18/19 04:00 63 07/18/19 00:00 97.7 59 18 131/92 (105) 97 07/18/19 00:00 56 07/17/19 21:00 Room Air 07/17/19 20:00 68 07/17/19 20:00 98.2 56 19 143/98 (113) 93 07/17/19 16:00 98.1 58 18 138/83 (101) 97 07/17/19 16:00 67 07/17/19 12:00 78 07/17/19 12:00 98.1 62 18 139/83 (101) 97 Intake and Output 07/17/19 07/18/19 19:00 07:00 Intake Total 480 ml Balance 480 ml Intake Oral 480 ml # Voids 3 4 Laboratory Tests 07/18/19 06:45: Hemoglobin A1c 5.6, Total Creatine Kinase 227, Triglycerides Level 137, Cholesterol Level 269H, LDL Cholesterol 176H, HDL Cholesterol 52, Cholesterol/ HDL Ratio 5.2H Height (Feet): 5 Height (Inches): 9.00 Weight (Pounds): 178 Objective General Appearance: WD/WN, no apparent distress, alert Lines, tubes and drains: peripheral HEENT: normocephalic, atraumatic, anicteric, PERRL, EOMI Neck: non-tender, supple Respiratory/Chest: chest wall non-tender, lungs clear, normal breath sounds, no respiratory distress, no accessory muscle use Cardiovascular/Chest: normal peripheral pulses, normal rate, regular rhythm, no gallop/murmur, no JVD Abdomen: normal bowel sounds, non tender, soft, no organomegaly Extremities: normal range of motion, non-tender, normal inspection, no calf tenderness Skin Exam: normal pigmentation, warm/dry, other - + multiple tattoos 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 Jul 18, 2019 11:25
[2019-07-18 12:00] VITALS: BP 150/93
--- NOTE | 2019-07-18 13:52 | NUR ---
CASE MANAGEMENT: REVIEW 07/18/2019 SI: CVA, CERVICAL RADICULOPATHY 97.5 60 16 150/93 97% RA CHOL 269 LDL 176 RPR ~PENDING T. PALLADIUM Ab~ PENDING IS: LIPITOR QHS ASA QD PLAVIX QD LOVENOX QD PLAN: 2D ECHO ~~~~ TELEMETRY 2 EAST
[2019-07-18 16:00] VITALS: BP 131/96
--- NOTE | 2019-07-18 19:37 | NUR ---
HAND-OFF: Report given to Magali Blackwell.
[2019-07-18 20:00] VITALS: BP 141/82
[2019-07-18] MEDS: Atorvastatin 80mg tab ORAL SCH (22:05)
[2019-07-19] VITALS: BP 142/96
[2019-07-19 04:00] VITALS: BP 118/63
--- NOTE | 2019-07-19 07:30 | NUR ---
HAND-OFF: Report given to KAYY LEIJA.
--- NOTE | 2019-07-19 07:51 | NUR ---
NURSE NOTES: RESTED WELL, NO SIGNIFICANT CHANGE OF CONDITION NOTED. SAFETY MAINTAINED. NAD.
--- NOTE | 2019-07-19 08:11 | NUR ---
NURSE NOTES: pt in bed, already had breakfast. Call light within reach, bed is locked and in lowest position. pt is on youth nutritional monitor, no signs of cardiac or respiratory distress at this time. pt has plans for DC today. Will continue to follow plans of care.
[2019-07-19 08:30] VITALS: BP 157/93
[2019-07-19 08:41] LABS: EOSINOPHILS % (AUTO) 3.1 % (0.0-3.0); HEMATOCRIT 48.7 % (42.0-52.0); HEMOGLOBIN 16.9 G/DL (14.2-18.0); LYMPHOCYTES % (AUTO) 38.5 % (20.0-45.0); MEAN CORPUSCULAR VOLUME 87 FL (80-99); MONOCYTES % (AUTO) 7.6 % (1.0-10.0); NEUTROPHILS % (AUTO) 49.7 % (45.0-75.0); PLATELET COUNT 204 K/UL (150-450); RED BLOOD COUNT 5.62 M/UL (4.70-6.10); RED CELL DISTRIBUTION WIDTH 13.1 % (11.6-14.8); WHITE BLOOD COUNT 12.7 K/UL (4.8-10.8)
[2019-07-19 09:14] VITALS: BP 157/93
[2019-07-19 09:21] LABS: ANION GAP 12 mmol/L (5-15); BLOOD UREA NITROGEN 17 mg/dL (7-18); CALCIUM 9.2 MG/DL (8.5-10.1); CARBON DIOXIDE 26 MMOL/L (21-32); CHLORIDE 105 MMOL/L (98-107); CREATININE 1.3 MG/DL (0.55-1.30); POTASSIUM 3.8 MMOL/L (3.5-5.1); SODIUM 143 MMOL/L (136-145)
[2019-07-19 09:32] VITALS: BP 157/93
[2019-07-19] MEDS: Enoxaparin 40mg Inj SUBQ SCH (09:33)
[2019-07-19] MEDS ORDERED: 1/2 NS 1000ml IV ONE (13:17)
--- NOTE | 2019-07-19 14:05 | NUR ---
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 Pt states that he was told he would be DC today no later than 12 today. Advised pt and family member there is no DC order for him yet. There is only a note of possible DC today.
--- NOTE | 2019-07-19 15:48 | NUR ---
NURSE NOTES: pt left AMA at 1548 PCP was notified. Pt very anxious and just wants to leave hospital, he was told PCP will come by to DC him today but he stated that he didn't want to wait any longer that he was told he was supposed to be DC at 12 and he has been waiting long enough. Pt was told he is leaving agains medical advised and he states he feels better leaving and being here just makes him more anxious. He stated he is making an appt with his doctor Sunday morning to follow up. IV line was DC, belonging were taken by pt , pt was too in a hurry to sign belonging sheet. Medical ID band was taken off from pt. Pt and family members left via private vehicle.
--- NOTE | 2019-07-24 10:34 | NUR ---
*-* INSURANCE *-* NO DISCHARGE SUMMARY IN SYSTEM TO FAX.
--- NOTE | 2019-07-30 16:51 | Discharge Summary ---
Discharge Summary Hospital Course Date of Admission Jul 16, 2019 at 16:51 Date of Discharge Jul 19, 2019 at 15:30 Admitting Diagnosis CVA Reason for Hospitalization: cva HPI Jin Alex is a 54 year old male who was admitted on Jul 16, 2019 at 16: 51 for Cerebrovascular Accident 54-year-old right-handed man with a history of hypertension, not on meds, presented with a chief complaint of numbness to the left side of his body . The patient was doing barbecue 2 days prior to presentation and suddenly had some numbness in both arms. The patient denies any headaches, seizures, dizziness, muscle weakness, paresthesias, or dysesthesias. _Denies chest pain, palpitations, or shortness of breath. In the ER was found to have an elevated white cell count of 11.9, chemistry revealed a BUN of 20, creatinine 1.5. Troponin is 0.00, Liver function tests are normal. electrolytes are normal. Blood sugar was 114 on admission. EKG sinus bradycardia. normal chest x-ray. Brain MRI: There is a probable 3 mm right pontine old lacunar infarct. 1 cm right thalamic inaction. Past medical and surgical history; Untreated HTN, conjunctivitis Social history: smokes marijuana, denies cigarette smoking and illicit drug use Family history : HTN Consultations Neurology Procedures None Hospital Course Patient was admitted for left arm tingling with concern for stroke. MRI findings showed: Acute 1 cm infarct involving right thalamus. This is seen in the setting of multiple old lacunar infarcts and periventricular T2 hyperintense signal indicative of chronic small vessel disease. CTA head and neck was negative. Permissive HTN was allowed for the first 24 hours. Neurology evaluated the patient and recommended to cont aspirin and statin. Hgb a1c 5.6. PITO resolved after admission. Patient left AMA on day of discharge prior to evaluation by physician or having been prescribed his recommended medication.. Patient stated he had follow up with his primary care physician on the following Sunday morning. Discharge Medications Medication Profile: No Active Prescriptions or Reported Meds Discharge Condition Upon Discharge: stable Discharge Disposition Patient was left AMA Discharge Diagnoses: (1) Right thalamic stroke (2) Small vessel disease (3) PITO (acute kidney injury) (4) HTN (hypertension) (5) Leukocytosis Ashley Gaines DO Jul 30, 2019 16:51
== END 2019-07-19 15:30 | disposition left against medical advice (07) | DRG 65 ==
LOC: EMR 14:33 → 2E 16:51 → EDBEDREQ 07-17 00:59 → 2E 07-17 02:02
DX: I63.81 Other cerebral infarction due to occlusion or stenosis of small artery (principal); N17.9 Acute kidney failure, unspecified; I10 Essential (primary) hypertension; E78.5 Hyperlipidemia, unspecified
CPT/HCPCS: 36415; 70496; 70498; 70551; 71045; 80048; 80053; 80061; 82550; 83036; 84484; 85025; 86592; 86780; 93005; 93306; 93880; 96360; 96372; 99285; J7030